=== PATIENT | male | born 1970 | race Caucasian/White ===

== ENCOUNTER 2018-11-28 14:21 | Emergency (ER) | payer MEDICAID, OTHER ==
[~2018-11-28] VITALS: Ht 198.1 cm; Wt 108.5 kg
[~2018-11-28 14:21] MED LIST: NO HOME MEDS
[2018-11-28 14:54] LABS: CLARITY,URINE CLEAR (Clear); COLOR,URINE YELLOW (Yellow); GLUCOSE, URINE NEGATIVE (Neg); KETONES,URINE NEGATIVE (Neg); LEUKOCYTE ESTERASE ,URINE NEGATIVE (Neg); NITRITES, URINE NEGATIVE (Neg); OCCULT BLOOD,URINE NEGATIVE (Neg); PROTEIN,URINE NEGATIVE (Neg); UROBILINOGEN,URINE 0.2 E.U/dL (0.2-1.0)
[2018-11-28] MEDS ORDERED: pantoprazole 40mg Tablet.DR PO ONE (14:55)
[2018-11-28] MEDS ORDERED: acetaminophen 325mg tablet PO ONE (14:55)
[2018-11-28 15:07] LABS: UA COLLECTION TYPE CLN CATCH MIDSTREAM
[2018-11-28 15:22] LABS: BASOPHILS % (AUTO) 0.4 % (0-1); EOSINOPHILS # (AUTO) 0.2 X10'3 (0-0.9); EOSINOPHILS % (AUTO) 2.1 % (0-6); HEMATOCRIT 47.6 % (42.0-52.0); HEMOGLOBIN 16.5 g/dl (14.0-17.9); LYMPHOCYTES # (AUTO) 2.2 X10'3 (1.1-4.8); LYMPHOCYTES % (AUTO) 29.5 % (21-51); MEAN CORPUSCULAR HEMOGLOBIN 31.7 PG (27.0-31.0); MEAN CORPUSCULAR HGB CONC 34.6 g/dL (33.0-36.5); MEAN CORPUSCULAR VOLUME 91.5 FL (78-98); MONOCYTES # (AUTO) 0.5 X10'3 (0-0.9); MONOCYTES % (AUTO) 6.3 % (2-12); NEUTROPHILS # (AUTO) 4.5 X10'3 (1.8-7.7); NEUTROPHILS % (AUTO) 61.7 % (42-75); PLATELET COUNT 209 X10'3 (140-440); RED CELL DISTRIBUTION WIDTH 13.5 % (11.5-14.5); WHITE BLOOD COUNT 7.4 X10'3 (4.5-11.0)
[2018-11-28 15:33] LABS: ALANINE AMINOTRANSFERASE 159 U/L (12-78); ALBUMIN/GLOBULIN RATIO 1.1 (1.1-1.5); ALKALINE PHOSPHATASE 141 IU/L (46-116); AMYLASE 67 U/L (25-115); ANION GAP 10 (8-16); ASPARTATE AMINO TRANSFERASE 56 U/L (10-37); BILIRUBIN,TOTAL 0.7 MG/DL (0.1-1.0); BLOOD UREA NITROGEN 14 MG/DL (7-18); BUN/CREATININE RATIO 15.6 (5.4-32.0); CHLORIDE 105 MMOL/L (99-107); GLUCOSE 97 MG/DL (70-104); LIPASE 342 U/L (73-393); POTASSIUM 3.7 MMOL/L (3.5-5.1); SODIUM 140 MMOL/L (135-145); TOTAL CARBON DIOXIDE 25.4 MMOL/L (24-32); TOTAL PROTEIN 7.7 G/DL (6.4-8.2); eGFR 90 ML/MIN
[2018-11-28] MEDS ORDERED: BISA-155 PO (15:40)
[2018-11-28] MEDS ORDERED: PANT20TA3 PO (15:40)
[2018-11-28] MEDS ORDERED: AMOX500C2 PO (15:40)
[2018-11-28] MEDS ORDERED: CLIN150C2 PO (15:46)
[2018-11-28 15:49] VITALS: BP 138/97
== END 2018-11-28 15:51 | disposition home or self-care (01) ==
LOC: ER 14:21
DX: J32.9 Chronic sinusitis, unspecified (principal); R10.13 Epigastric pain; K92.1 Melena; K59.00 Constipation, unspecified; Z79.899 Other long term (current) drug therapy; Z79.2 Long term (current) use of antibiotics; Z88.8 Allergy status to other drugs, medicaments and biological substances; Z88.6 Allergy status to analgesic agent
CPT/HCPCS: 36415; 80053; 81003; 82150; 83690; 85025; 85610; 99283

== ENCOUNTER 2019-05-06 21:53 | Emergency (ER) | payer MEDICAID, OTHER ==
[~2019-05-06] VITALS: Ht 198.1 cm; Wt 106.8 kg
[~2019-05-06 21:53] MED LIST changes: +BISA-155 PO; +PANT20TA3 PO
[2019-05-06 23:00] LABS: BASOPHILS # (AUTO) 0.1 X10'3 (0-0.2); EOSINOPHILS # (AUTO) 0.1 X10'3 (0-0.9); EOSINOPHILS % (AUTO) 1.8 % (0-6); HEMATOCRIT 47.4 % (42.0-52.0); HEMOGLOBIN 16.7 g/dl (14.0-17.9); LYMPHOCYTES # (AUTO) 2.6 X10'3 (1.1-4.8); LYMPHOCYTES % (AUTO) 39.8 % (21-51); MEAN CORPUSCULAR HEMOGLOBIN 32.8 PG (27.0-31.0); MEAN CORPUSCULAR HGB CONC 35.2 g/dL (33.0-36.5); MEAN CORPUSCULAR VOLUME 93.2 FL (78-98); MEAN PLATELET VOLUME 9.3 FL (7.4-10.4); MONOCYTES # (AUTO) 0.4 X10'3 (0-0.9); MONOCYTES % (AUTO) 6.1 % (2-12); NEUTROPHILS # (AUTO) 3.4 X10'3 (1.8-7.7); NEUTROPHILS % (AUTO) 51.3 % (42-75); PLATELET COUNT 201 X10'3 (140-440); RED BLOOD COUNT 5.09 X10'6 (4.70-6.10); RED CELL DISTRIBUTION WIDTH 12.9 % (11.5-14.5); WHITE BLOOD COUNT 6.7 X10'3 (4.5-11.0)
[2019-05-06 23:12] LABS: PARTIAL THROMBOPLASTIN TIME 29 SECONDS (22-32)
[2019-05-06 23:14] LABS: ALANINE AMINOTRANSFERASE 67 U/L (12-78); ALBUMIN 3.9 G/DL (3.4-5.0); ALKALINE PHOSPHATASE 94 IU/L (46-116); ANION GAP 11 (8-16); ASPARTATE AMINO TRANSFERASE 38 U/L (10-37); BILIRUBIN,TOTAL 0.3 MG/DL (0.1-1.0); BLOOD UREA NITROGEN 17 MG/DL (7-18); CALCIUM 9.3 MG/DL (8.5-10.1); CHLORIDE 107 MMOL/L (99-107); CREATININE 1.42 MG/DL (0.60-1.10); GLUCOSE 104 MG/DL (70-104); POTASSIUM 3.8 MMOL/L (3.5-5.1); SODIUM 142 MMOL/L (135-145); TOTAL CARBON DIOXIDE 24.2 MMOL/L (24-32); TOTAL PROTEIN 7.9 G/DL (6.4-8.2); eGFR 53 ML/MIN
[2019-05-07] MEDS ORDERED: normal saline 1000ML IV soln IVB ONE (00:05)
[2019-05-07] MEDS ORDERED: ketorolac trometh. 30mg/ml inj. IV ONE (00:05)
[2019-05-07] MEDS ORDERED: SUMAtriptan succ. 6 MG/0.5ml vial SQ ONE (01:35)
[2019-05-07] MEDS ORDERED: proCHLORperazine 10 MG/2 ml inj IV ONE (01:35)
[2019-05-07] MEDS ORDERED: benztropine 1mg tablet PO SCH (02:00)
[2019-05-07] MEDS ORDERED: benztropine 1mg tablet PO ONE (02:00)
[2019-05-07 02:33] VITALS: BP 141/93
== END 2019-05-07 02:35 | disposition home or self-care (01) ==
LOC: ER 21:54
DX: R51 Headache (principal); I10 Essential (primary) hypertension; M79.605 Pain in left leg; I25.2 Old myocardial infarction; E03.9 Hypothyroidism, unspecified; Z88.6 Allergy status to analgesic agent; Z79.899 Other long term (current) drug therapy
CPT/HCPCS: 36415; 71045; 80053; 84484; 85025; 85610; 85730; 93005; 93971; 96372; 96374; 96375; 99284; J0780; J1885; J7030; J3030

== ENCOUNTER 2020-03-14 10:19 | Emergency (ER) | payer MEDICAID, OTHER ==
[~2020-03-14] VITALS: Ht 198.1 cm; Wt 111.4 kg
[2020-03-14] MEDS ORDERED: aspirin 81mg tab.chew PO ONE (10:50)
[2020-03-14 11:02] LABS: BASOPHILS # (AUTO) 0.1 X10'3 (0-0.2); BASOPHILS % (AUTO) 1.1 % (0-1); EOSINOPHILS # (AUTO) 0.2 X10'3 (0-0.9); EOSINOPHILS % (AUTO) 2.7 % (0-6); HEMATOCRIT 46.2 % (42.0-52.0); HEMOGLOBIN 16.1 g/dl (14.0-17.9); LYMPHOCYTES % (AUTO) 33.9 % (21-51); MEAN CORPUSCULAR HEMOGLOBIN 32.2 PG (27.0-31.0); MEAN CORPUSCULAR HGB CONC 34.8 g/dL (33.0-36.5); MEAN CORPUSCULAR VOLUME 92.7 FL (78-98); MEAN PLATELET VOLUME 9.3 FL (7.4-10.4); MONOCYTES # (AUTO) 0.3 X10'3 (0-0.9); MONOCYTES % (AUTO) 5.5 % (2-12); NEUTROPHILS # (AUTO) 3.4 X10'3 (1.8-7.7); NEUTROPHILS % (AUTO) 56.8 % (42-75); PLATELET COUNT 167 X10'3 (140-440); RED BLOOD COUNT 4.99 X10'6 (4.70-6.10); RED CELL DISTRIBUTION WIDTH 12.8 % (11.5-14.5)
[2020-03-14 11:10] LABS: ALANINE AMINOTRANSFERASE 228 U/L (12-78); ALBUMIN 3.8 G/DL (3.4-5.0); ALKALINE PHOSPHATASE 116 IU/L (46-116); ANION GAP 9 (8-16); ASPARTATE AMINO TRANSFERASE 80 U/L (10-37); BILIRUBIN,TOTAL 0.6 MG/DL (0.1-1.0); BLOOD UREA NITROGEN 15 MG/DL (7-18); CHLORIDE 105 MMOL/L (99-107); GLUCOSE 102 MG/DL (70-104); POTASSIUM 3.8 MMOL/L (3.5-5.1); SODIUM 139 MMOL/L (135-145); TOTAL CARBON DIOXIDE 25.4 MMOL/L (24-32); TOTAL PROTEIN 7.7 G/DL (6.4-8.2); eGFR 80 ML/MIN
[2020-03-14 11:19] LABS: MAGNESIUM 2.2 MG/DL (1.5-2.4)
[2020-03-14 11:37] VITALS: BP 150/106
== END 2020-03-14 11:39 | disposition home or self-care (01) ==
LOC: ER 10:20
DX: R07.89 Other chest pain (principal); R20.0 Anesthesia of skin; R11.0 Nausea; I10 Essential (primary) hypertension; I25.2 Old myocardial infarction; E03.9 Hypothyroidism, unspecified; G89.29 Other chronic pain; F41.0 Panic disorder [episodic paroxysmal anxiety]; F17.200 Nicotine dependence, unspecified, uncomplicated; Z88.8 Allergy status to other drugs, medicaments and biological substances; Z79.899 Other long term (current) drug therapy
CPT/HCPCS: 36415; 71045; 80053; 83735; 83880; 84484; 85025; 93005; 99285

== ENCOUNTER 2020-10-19 22:17 | Emergency (ER) | payer BC, MEDICAID, OTHER ==
[~2020-10-19] VITALS: Ht 195.6 cm; Wt 118.0 kg
[~2020-10-19 22:17] MED LIST changes: +PANT20TA18 PO; -PANT20TA3 PO
[2020-10-19] MEDS ORDERED: HYDR-3686 PO (22:57)
[2020-10-19] MEDS ORDERED: PRED20TA PO (22:57)
[2020-10-19 23:24] VITALS: BP 144/86
== END 2020-10-19 23:28 | disposition home or self-care (01) ==
LOC: ER 22:17
DX: R21 Rash and other nonspecific skin eruption (principal); R07.89 Other chest pain; I10 Essential (primary) hypertension; I25.2 Old myocardial infarction; E03.9 Hypothyroidism, unspecified; G89.29 Other chronic pain; Z88.8 Allergy status to other drugs, medicaments and biological substances; Z79.899 Other long term (current) drug therapy
CPT/HCPCS: 93005; 99283

== ENCOUNTER 2021-11-03 01:52 | Emergency (ER) | payer BC ==
[~2021-11-03] VITALS: Ht 198.1 cm; Wt 115.9 kg
[2021-11-03 02:04] VITALS: BP 171/110
[2021-11-03] MEDS ORDERED: CEFD300C3 PO (02:09)
[2021-11-03] MEDS ORDERED: acetaminophen 325mg tablet PO ONE (02:10)
== END 2021-11-03 03:02 | disposition home or self-care (01) ==
LOC: ER 01:52
DX: H66.92 Otitis media, unspecified, left ear (principal); H92.02 Otalgia, left ear; I10 Essential (primary) hypertension; I25.2 Old myocardial infarction; E03.9 Hypothyroidism, unspecified; G89.29 Other chronic pain; Z88.6 Allergy status to analgesic agent; Z88.8 Allergy status to other drugs, medicaments and biological substances; Z79.2 Long term (current) use of antibiotics; Z79.899 Other long term (current) drug therapy
CPT/HCPCS: 99283

== ENCOUNTER 2022-07-08 14:21 | Emergency (ER) | payer BC ==
[~2022-07-08] VITALS: Ht 198.1 cm; Wt 109.1 kg
[~2022-07-08 14:21] MED LIST changes: +CEFD300C3 PO
[2022-07-08] MEDS ORDERED: CEPH-585 PO (14:53)
[2022-07-08] MEDS ORDERED: cephalexin 250mg capsule PO ONE (14:55)
[2022-07-08] MEDS ORDERED: cephalexin 500mg capsule PO ONE (14:55)
[2022-07-08] MEDS ORDERED: bacitracin 15gm ointment TP ONE (14:55)
[2022-07-08 15:13] VITALS: BP 174/90
== END 2022-07-08 15:17 | disposition home or self-care (01) ==
LOC: ER 14:21
DX: S61.031A Puncture wound without foreign body of right thumb without damage to nail, initial encounter (principal); I10 Essential (primary) hypertension; I25.2 Old myocardial infarction; E03.9 Hypothyroidism, unspecified; G89.29 Other chronic pain; Z88.6 Allergy status to analgesic agent; Z88.8 Allergy status to other drugs, medicaments and biological substances; Z79.2 Long term (current) use of antibiotics; Z79.899 Other long term (current) drug therapy; X58.XXXA Exposure to other specified factors, initial encounter; Y93.89 Activity, other specified; Y92.89 Other specified places as the place of occurrence of the external cause; Y99.8 Other external cause status
CPT/HCPCS: 29125; 73130; 99283

== ENCOUNTER 2023-07-11 20:09 | Emergency (ER) | payer BC, MEDICAID ==
[~2023-07-11] VITALS: Ht 198.1 cm; Wt 109.1 kg
[2023-07-11] MEDS ORDERED: LORazepam 2 mg/ml vial IV ONE (20:25)
[2023-07-11] MEDS ORDERED: famotidine/PF 10 mg/ml inj IV ONE (20:25)
[2023-07-11] MEDS ORDERED: methylPREDNISolone sod succ 125mg/2ml vial IV ONE (20:25)
[2023-07-11] MEDS ORDERED: FAMO-128 PO (21:32)
[2023-07-11] MEDS ORDERED: PRED20TA PO (21:32)
[2023-07-11 21:48] VITALS: BP 153/101; PULSE 70; RESP 16; TEMP 98.7; O2SAT 97
== END 2023-07-11 21:51 | disposition home or self-care (01) ==
LOC: ER 20:09
DX: T78.49XA Other allergy, initial encounter (principal); X58.XXXA Exposure to other specified factors, initial encounter
CPT/HCPCS: 96374; 96375; 99284; J2060; J2930; J3490

== ENCOUNTER 2023-10-18 09:09 | Inpatient (IN) | payer MEDICAID ==
[~2023-10-18] VITALS: Ht 198.1 cm; Wt 107.0 kg
[~2023-10-18 09:09] MED LIST changes: +FAMO-128 PO
[2023-10-18 09:58] LABS: BASOPHILS % (AUTO) 0.7 % (0-1); EOSINOPHILS # (AUTO) 0.2 X10'3 (0-0.9); HEMATOCRIT 44.2 % (42.0-52.0); HEMOGLOBIN 15.2 g/dl (14.0-17.9); LYMPHOCYTES # (AUTO) 2.6 X10'3 (1.1-4.8); LYMPHOCYTES % (AUTO) 37.9 % (21-51); MEAN CORPUSCULAR HGB CONC 34.5 g/dL (33.0-36.5); MEAN CORPUSCULAR VOLUME 92.8 FL (78-98); MEAN PLATELET VOLUME 9.3 FL (7.4-10.4); MONOCYTES # (AUTO) 0.4 X10'3 (0-0.9); MONOCYTES % (AUTO) 6.3 % (2-12); NEUTROPHILS # (AUTO) 3.6 X10'3 (1.8-7.7); NEUTROPHILS % (AUTO) 52.1 % (42-75); PLATELET COUNT 194 X10'3 (140-440); RED BLOOD COUNT 4.76 X10'6 (4.70-6.10); RED CELL DISTRIBUTION WIDTH 13.2 % (11.5-14.5); WHITE BLOOD COUNT 6.8 X10'3 (4.5-11.0)
[2023-10-18 10:35] LABS: ALBUMIN 3.5 G/DL (3.4-5.0); ANION GAP 11 (8-16); BLOOD UREA NITROGEN 12 MG/DL (7-18); BUN/CREATININE RATIO 13.2 (10.0-20.0); CALCIUM 9.1 MG/DL (8.5-10.1); CHLORIDE 106 MMOL/L (99-107); CREATININE 0.91 MG/DL (0.60-1.10); GLUCOSE 98 MG/DL (70-104); POTASSIUM 3.8 MMOL/L (3.5-5.1); PRO BRAIN NATRIURETIC PEPTIDE 147 PG/ML (0-125); SODIUM 143 MMOL/L (135-145); TOTAL CARBON DIOXIDE 26.1 MMOL/L (24-32); eCRCL 123 ML/MIN; eGFR 87 ML/MIN
[2023-10-18] MEDS: hydrALAZINE 20mg/ml inj. IV ONE ×2 (10:57→12:09)
[2023-10-18 13:33] LABS: URINE AMPHETAMINE SCREEN NEGATIVE (Neg); URINE BARBITUATE SCREEN NEGATIVE (Neg); URINE BENZODIAZEPINES SCREEN NEGATIVE (Neg); URINE CANNABINOID SCREEN NEGATIVE (Neg); URINE COCAINE SCREEN NEGATIVE (Neg); URINE METHADONE SCREEN NEGATIVE (Neg); URINE OPIATE SCREEN NEGATIVE (Neg); URINE PHENCYCLIDINE SCREEN NEGATIVE (Neg)
[2023-10-18] MEDS ORDERED: iohexol 350MG/ML 100ml bottle IV ONE (13:57)
[2023-10-18] MEDS ORDERED: aminophylline 250mg/10ml inj. IV PRN (14:55)
[2023-10-18] MEDS ORDERED: metoprolol tartrate 1mg/ml inj IV PRN (14:55)
[2023-10-18] MEDS ORDERED: magnesium hydroxide 30ml (MOM) UD suspension PO PRN (14:55)
[2023-10-18] MEDS ORDERED: potassium Cl 20 mEq SR tablet PO PRN ×2 (14:55)
[2023-10-18] MEDS ORDERED: magnesium 4gm in 100ml NS 100 ML IV PRN (14:55)
[2023-10-18] MEDS ORDERED: potassium Cl 40MEQ/1/2NS 520ml 520 ML IV PRN (14:55)
[2023-10-18] MEDS ORDERED: ondansetron/PF 4mg/2ml inj IV PRN (14:55)
[2023-10-18] MEDS ORDERED: magnesium 2GM in 50ml NS 50 ML IV PRN (14:55)
[2023-10-18] MEDS: PERFLUTREN PROTEIN-A MICROSPHR (Optison) 0.22 MG/ML 3ML VIAL IV ONE (14:55)
[2023-10-18] MEDS ORDERED: mag hydrox/Alum hydrox/simeth 30ml oral suspension PO PRN (14:55)
[2023-10-18] MEDS ORDERED: nitroGLYCERIN 0.4mg SUBLingual tab SL PRN (14:55)
[2023-10-18] MEDS ORDERED: hydrALAZINE 20mg/ml inj. IV PRN (15:10)
[2023-10-18] MEDS: enalaprilat dihydrate 2.5mg/2ml vial IV ONE (16:18)
[2023-10-18] MEDS: nicotine 21mg patch - 24 hr TD ONE (16:52)
[2023-10-18 17:24] VITALS: BP 150/91; PULSE 58; RESP 20; TEMP 98.2; O2SAT 97
[2023-10-18 18:00] VITALS: BP 140/93; PULSE 61; RESP 16; TEMP 97.5; O2SAT 98
[2023-10-18] MEDS: acetaminophen 325mg tablet PO PRN (18:18)
[2023-10-18 20:00] VITALS: BP_SYST 158; BP_SYST 162; BP_DIAS 102; BP_DIAS 96; PULSE 63; PULSE 67
[2023-10-18] MEDS: K and/or MAG REPLACEMENT MC SCH (20:00)
[2023-10-18] MEDS: docusate sod 100mg capsule PO SCH (21:31)
[2023-10-18] MEDS: enoxaparin 40mg/0.4ml syringe SQ SCH (21:35)
[2023-10-18 22:00] VITALS: BP 162/102; PULSE 67; RESP 22; TEMP 97.5; O2SAT 97
[2023-10-18] MEDS: normal saline 1000ml 1,000 ML IV SCH (22:14)
[2023-10-18 22:47] VITALS: RESP 16; O2SAT 98
[2023-10-18] MEDS ORDERED: LOSA100T58 PO (23:26)
[2023-10-18] MEDS ORDERED: CLON0.1T2 (23:26)
[2023-10-18] MEDS ORDERED: PARO10TA4 (23:26)
[2023-10-18] MEDS ORDERED: LEVO137T2 PO (23:26)
[2023-10-18] MEDS ORDERED: LORA-269 (23:26)
[2023-10-19] VITALS (15 sets, daily range): BP systolic 154–179; BP diastolic 88–113; PULSE 62–107; RESP 13–20; TEMP 97.5–97.7; O2SAT 93–99
[2023-10-19] MEDS: HYDROcodone/acetaminophen 5mg/325mg tablet PO ONE (06:03)
[2023-10-19 07:04] LABS: BASOPHILS % (AUTO) 0.7 % (0-1); EOSINOPHILS # (AUTO) 0.3 X10'3 (0-0.9); EOSINOPHILS % (AUTO) 3.8 % (0-6); HEMATOCRIT 43.7 % (42.0-52.0); HEMOGLOBIN 15.2 g/dl (14.0-17.9); LYMPHOCYTES # (AUTO) 2.5 X10'3 (1.1-4.8); LYMPHOCYTES % (AUTO) 35.4 % (21-51); MEAN CORPUSCULAR HGB CONC 34.8 g/dL (33.0-36.5); MEAN CORPUSCULAR VOLUME 92.1 FL (78-98); MEAN PLATELET VOLUME 9.3 FL (7.4-10.4); MONOCYTES # (AUTO) 0.4 X10'3 (0-0.9); NEUTROPHILS # (AUTO) 3.8 X10'3 (1.8-7.7); NEUTROPHILS % (AUTO) 54.1 % (42-75); PLATELET COUNT 197 X10'3 (140-440); RED BLOOD COUNT 4.75 X10'6 (4.70-6.10)
[2023-10-19 07:22] LABS: ALANINE AMINOTRANSFERASE 48 U/L (12-78); ALBUMIN 3.6 G/DL (3.4-5.0); ALKALINE PHOSPHATASE 122 IU/L (46-116); ANION GAP 10 (8-16); ASPARTATE AMINO TRANSFERASE 20 U/L (10-37); BILIRUBIN,TOTAL 0.5 MG/DL (0.1-1.0); BLOOD UREA NITROGEN 13 MG/DL (7-18); BUN/CREATININE RATIO 14.4 (10.0-20.0); CALCIUM 8.9 MG/DL (8.5-10.1); CHLORIDE 107 MMOL/L (99-107); GLUCOSE 101 MG/DL (70-104); POTASSIUM 3.7 MMOL/L (3.5-5.1); SODIUM 142 MMOL/L (135-145); TOTAL CARBON DIOXIDE 25.3 MMOL/L (24-32); TOTAL PROTEIN 7.2 G/DL (6.4-8.2); eCRCL 124 ML/MIN; eGFR 89 ML/MIN
[2023-10-19] MEDS: nicotine 21mg patch - 24 hr TD SCH (07:35)
[2023-10-19] MEDS: amLODIPine 5mg tablet PO SCH (07:36)
[2023-10-19] MEDS: atorvastatin 20mg tablet PO SCH (07:37)
[2023-10-19] MEDS: regadenoson 0.4mg/5ml syringe IV PRN (11:03)
[2023-10-19] MEDS: diazepam 5mg tablet PO ONE (13:20)
[2023-10-19] MEDS: losartan 50mg tablet PO ONE (13:35)
[2023-10-19] MEDS ORDERED: NICO-687 TD (14:16)
[2023-10-19] MEDS ORDERED: ATOR-2 PO (14:16)
[2023-10-19] MEDS ORDERED: AMLO-708 PO (14:16)
[2023-10-20] MEDS ORDERED: levoTHYROXINE 112mcg tablet PO SCH (07:00)
[2023-10-20] MEDS ORDERED: levoTHYROXINE 25mcg tablet PO SCH (07:00)
[2023-10-20] MEDS ORDERED: losartan 50mg tablet PO SCH (08:00)
== END 2023-10-19 15:10 | disposition home or self-care (01) | DRG 199 ==
LOC: ER 09:10 → ED HOLD 15:04 → PCU 3S 17:13
PROVIDERS: ADMIT Family Medicine; ATTEND Family Medicine
PROC: B32T1ZZ Computerized Tomography (CT Scan) of Left Pulmonary Artery using Low Osmolar Contrast (ICD-10-PCS; principal; 2023-10-18)
PROC: B3201ZZ Computerized Tomography (CT Scan) of Thoracic Aorta using Low Osmolar Contrast (ICD-10-PCS; 2023-10-18)
PROC: B32S1ZZ Computerized Tomography (CT Scan) of Right Pulmonary Artery using Low Osmolar Contrast (ICD-10-PCS; 2023-10-18)
PROC: 4A02XM4 Measurement of Cardiac Total Activity, External Approach (ICD-10-PCS; 2023-10-19)
PROC: 3E033HZ Introduction of Radioactive Substance into Peripheral Vein, Percutaneous Approach (ICD-10-PCS; 2023-10-19)
DX: I16.1 Hypertensive emergency (principal); E03.9 Hypothyroidism, unspecified; R55 Syncope and collapse; I10 Essential (primary) hypertension; F41.9 Anxiety disorder, unspecified; G89.29 Other chronic pain; G62.9 Polyneuropathy, unspecified; E78.00 Pure hypercholesterolemia, unspecified; F17.210 Nicotine dependence, cigarettes, uncomplicated; Z82.61 Family history of arthritis; Z88.0 Allergy status to penicillin; Z88.6 Allergy status to analgesic agent; I25.2 Old myocardial infarction; Z82.49 Family history of ischemic heart disease and other diseases of the circulatory system; Z88.8 Allergy status to other drugs, medicaments and biological substances; Z79.899 Other long term (current) drug therapy; Z71.6 Tobacco abuse counseling
CPT/HCPCS: 36415; 70450; 70496; 70498; 71045; 78452; 80048; 80053; 80305; 83880; 84484; 85025; 87081; 93005; 93017; 93306; 96374; 96375; 96376; 99291; A9500; G0378; J0360; J1650; J2785; J3490; J7030; Q9967

== ENCOUNTER → 2024-01-17 | Outpatient (CLI) | payer MEDICAID ==
[2024-01-17] VITALS (21 sets, daily range): BP systolic 117–140; BP diastolic 59–91; PULSE 53–77
[~2024-01-17] MED LIST changes: +AMLO-708 PO; +ATOR-2 PO; -CEFD300C3 PO; +CLON0.1T2; +LEVO137T2 PO; +LORA-269; +LOSA100T58 PO; +NICO-687 TD; -NO HOME MEDS; +PARO10TA4
== END | disposition home or self-care (01) ==
LOC: CARD DIAG 05:28
PROVIDERS: ATTEND Internal Medicine Interventional Cardiology
DX: I95.1 Orthostatic hypotension (principal)
CPT/HCPCS: 93660

== ENCOUNTER 2024-09-06 19:55 | Emergency (ER) | payer MEDICAID ==
[~2024-09-06] VITALS: Ht 195.6 cm; Wt 84.9 kg
[2024-09-06] MEDS ORDERED: albuterol 2.5 MG/3 ML nebule NEB ONE (20:10)
[2024-09-06] MEDS: epiNEPHrine 1 mg/ml inj SQ ONE (20:16)
[2024-09-06] MEDS: famotidine/PF 10 mg/ml inj IV ONE (20:17)
[2024-09-06] MEDS: methylPREDNISolone sod succ 125mg/2ml vial IV ONE (20:17)
[2024-09-06] MEDS: normal saline 1000ML IV soln IVB STA (20:18)
[2024-09-06] MEDS: epiNEPHrine 1 mg/ml inj SQ STA (20:39)
[2024-09-06 22:00] VITALS: TEMP 96.8
[2024-09-06] MEDS ORDERED: EPIN0.3P3 IM (22:00)
[2024-09-06 22:02] VITALS: BP 139/87; PULSE 85; RESP 14; O2SAT 98
== END 2024-09-06 22:07 | disposition home or self-care (01) ==
LOC: ER 19:55
DX: T78.40XA Allergy, unspecified, initial encounter (principal); E03.9 Hypothyroidism, unspecified; I10 Essential (primary) hypertension; F12.90 Cannabis use, unspecified, uncomplicated; Z88.6 Allergy status to analgesic agent; Y92.89 Other specified places as the place of occurrence of the external cause
CPT/HCPCS: 93005; 96361; 96372; 96374; 96375; 99284; J0171; J2919; J3490; J7030

== ENCOUNTER 2025-02-05 09:56 | Emergency (ER) | payer MEDICAID ==
[~2025-02-05] VITALS: Ht 198.1 cm; Wt 84.3 kg
[~2025-02-05 09:56] MED LIST changes: +EPIN0.3P3 IM
--- NOTE | 2025-02-05 10:05 | Physician Documentation ---
History of Present Illness ~ Stated Complaint: CP HIGH BLOOD PRESSURE Time Seen by MD: 10:23 Primary Medical Doctor: none HPI This is a 54-year-old male who presents due to onset of left-sided chest pain this morning. He does also note a history of panic disorder, and has been experiencing numbness and tingling in the extremities as he was at home sitting checking his blood pressure. Notes BP 190's systolic at home. He does note a history of a heart attack couple of [place] ago in [place]. 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 Smokes. Additional note by Beny Abbott DO: I took over the care of this patient from previous physician. I reviewed any previous notes available, obtain my own history, review of systems and physical examination was performed by myself. This is a very pleasant gentleman, 54 years of age, who self reports a prior history of cardiac workup approximately six months ago with a stress test and an echo, history of panic attack, history of UT three years ago while in [place]. He comes in today because he developed bilateral hand and feet numbness, and feeling off. He checked his blood pressure and it was elevated. He did multiple readings of repeated elevated blood pressure. At the point he decided to come and get checked out. While EN route to the emergency department he had developed left-sided chest pain. The particular palliating or aggravating factors. Did not attempt to treat it. A they numbness in bilateral hands and feet is symmetric. Does have known history of hypertension, on multiple medications. Medication Reconciliation Allergies: Coded Allergies: diphenhydramine HCl (Verified Allergy, Intermediate, HIVES, 02/05/25) naproxen (Verified Allergy, Intermediate, BLISTERS, 02/05/25) Uncoded Allergies: PENICILLIN (Allergy, Mild, 05/06/19) Scheduled Amlodipine Besylate (Amlodipine Besylate), 1 TAB PO DAILY Atorvastatin Calcium (Atorvastatin Calcium), 1 TAB PO DAILY Bisacodyl (Dulcolax), 4 TAB PO ONCE Epinephrine (Epipen 2-Josef), 1 SYR IM ONCE Famotidine (Pepcid), 1 TAB PO Q12H Levothyroxine Sodium (Levothyroxine Sodium), 1 TAB PO DAILY, (Reported) Losartan Potassium (Losartan Potassium), 1 TAB PO DAILY, (Reported) Nicotine 21 MG Patch* (Habitrol 21 MG Patch*), 1 PATCH TD DAILY Pantoprazole Sodium (Protonix), 1 TAB PO DAILY Miscellaneous Medications Clonidine HCl (Clonidine HCl), (Reported) Lorazepam (Ativan), (Reported) Paroxetine Hcl (PAXIL tablet), 20, (Reported) Past Medical History Past Medical History: Hypertension, Myocardial Infarction, Hypothyroidism, Chronic Back Pain, Panic Disorder Past Surgical History: noncontributory Patient History: FH: hypertension MOTHER FH: myocardial infarction brother FH: rheumatoid arthritis MOTHER Alcohol Use: None Drug Use: marijuana Lives with: Spouse Lives In: Home Review of Systems ROS As stated above in the HPI, otherwise all systems are reviewed and negative. Physical Exam Physical Exam Physical examination: GENERAL: Awake, alert, oriented, GCS 15, no apparent distress, non-toxic appearing, answers questions, follows commands appropriately. HEENT: Atraumatic, normocephalic, pupils equal, extraocular muscles intact Active gross movements, sclerae anicteric, mucus membranes moist, no stridor. NECK: Midline, no JVD CARDIOVASCULAR: Good skin perfusion without evidence of pallor, mottling. PULMONARY: Nonlabored, symmetric chest rise, no audible wheezing, no accessory muscle use, no respiratory distress, speaking in full sentences. GASTROINTESTINAL: Not distended. NEUROLOGIC: Lucid with normal mental status. Normal facial symmetry. Moves all extremities symmetrically and with purpose. No truncal ataxia. Speech is fluid without evidence of dysarthria or aphasia, no focal deficits appreciated. EXTREMITIES: Acute deformities Skin: warm, dry PSYCHIATRIC: Normal affect, normal insight, normal concentration. Focused exam: [] Progress Results/Orders Results/Orders Vital Signs 02/05/25 02/05/25 02/05/25 10:01 10:28 11:21 Temp 98.5 Pulse 66 58 Resp 18 16 B/P (MAP) 163/113 165/110 (128) Pulse Ox 100 98 O2 Flow Rate 0 Laboratory Tests Test 02/05/25 10:01 02/05/25 11:53 White Blood Count 8.3 Red Blood Count 4.90 Hemoglobin 15.6 Hematocrit 45.0 Mean Corpuscular Volume 91.8 Mean Corpuscular Hemoglobin 31.9 H Mean Corpuscular Hemoglobin Concent 34.7 Red Cell Distribution Width 13.6 Platelet Count 235 Mean Platelet Volume 9.0 Neutrophils (%) (Auto) 56.0 Lymphocytes (%) (Auto) 36.4 Monocytes (%) (Auto) 5.3 Eosinophils (%) (Auto) 1.5 Basophils (%) (Auto) 0.8 Neutrophils # (Auto) 4.6 Lymphocytes # (Auto) 3.0 Monocytes # (Auto) 0.4 Eosinophils # (Auto) 0.1 Basophils # (Auto) 0.1 CBC Comment Sodium Level 140 Potassium Level 3.6 Chloride Level 103 Carbon Dioxide Level 28.2 Anion Gap 9 Blood Urea Nitrogen 12 Creatinine 0.95 Estimated GFR/1.73 m2 83 BUN/Creatinine Ratio 12.6 Glucose Level 95 Calcium Level 9.2 Magnesium Level 2.3 Total Bilirubin 0.6 Aspartate Amino Transf (AST/SGOT) 31 Alanine Aminotransferase (ALT/SGPT) 49 Alkaline Phosphatase 118 H Troponin I High Sensitivity 8 8 Pro-B-Type Natriuretic Peptide 202 H Total Protein 7.8 Albumin 4.0 Globulin 3.8 Albumin/Globulin Ratio 1.1 Chemistry Comments Troponin I High Sens Percent Delta 0 Troponin I Hi Sens Absolute Change 0 Medical Decision Making Findings Facility Status: ED Holds, [facility] process The plan was discussed with the patient, who demonstrates clear understanding of the plan and is in agreement with the plan unless otherwise noted in the chart. All questions have been answered, all concerns were addressed unless otherwise documented. I was available throughout their ED stay for frequent reassessment and questions. Differential Diagnoses (considered and possible or likely): [Initial trigger for the visit was feeling off and has been bilateral has been feet numbness with the differential including but not limited to hyperventilation, panic, clinically not consistent with CVA/TIA, and unlikely to have Guillain-Nashua syndrome as he has not no risk factors. And intracranial neoplasm is unlikely to calm abdominal has been feet numbness. Elevated blood pressure most likely related to with a state of increased alertness. With respect to chest pain, Differential diagnosis considered includes chest wall pain, pleurisy, pneumonia, pulmonary embolus, GERD, esophagitis, gastritis, anxiety, stress reaction, costochondritis, acute coronary syndrome, aortic dissection, pericarditis, myocarditis, or pneumothorax.] ??Differential Diagnoses (considered and unlikely, not requiring evaluation currently): [No evidence of lateralizing signs to suspect a stroke at this time. No trauma.] MDM Data Please see HPI for the following: Independent Historians and external Records Review. Historian: [Patient] Independent Historians: ?[, record review] Medication Management: [Reviewed medication list] Social History and determinants: [Reviewed] Please see the body of the note for the following: Any independent interpretations of ECG, imaging studies. All vitals signs/haemodynamics, ordered tests were independently reviewed and interpreted by myself. 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 The gentleman does have elevated blood pressure but is holding stable. There is no evidence of tachycardic, there were no evidence of respiratory distress. Laboratory studies reviewed. CBC shows no leukocytosis, no anemia, normal platelets. No neutrophilic predominance. Metabolic panel notes no electrolyte derangement, normal wrong liver function. Marginal appropriate pain, 2- troponins.] Tests considered but not ordered include: [MRI can be done on an outpatient basis, he had a recent stress test] Social Determinants of Health Impact: Patient was evaluated in [facility], or [facility] [place] access to healthcare due to below par ratio of patient to medical providers. [] Comorbid Conditions Impacting Present Evaluation and Care/Treatment: [Prior history of UT] Management Discussions with other Healthcare Providers: [None] Treatment and Disposition Medication Management (Given or considered): []. See EMR for details Consideration for Hospitalization/Escalation/Deescalation of Care: Admission for observation has been considered, [however the patient is able to tolerate p.o., their symptoms are controlled, they are able to rely on oral medications, and their chief complaint/diagnosis can be managed on outpatient basis.] ?ED Course:?[No clinical deterioration. No significant spikes in blood pre ssure.] ?Shared decision making:?[Patient is hemodynamically stable for discharge home with follow with their primary care provider. [ ] Specific and cautious return precautions provided and discussed with full understanding. Any incidental findings were also discussed and follow up recommendations given. [] All questions answered. Patient/family were able to verbalize back return precautions. Patient/family agree to plan. Copies of imaging and laboratory studies were provided.] Code status:?FULL Please see the full Electronic Medical Record for full details of nursing documentation, medications list, other records of complete past medical history and conditions, vital signs, laboratory studies, and any radiologic study interpretations by radiologists. Portions of this note were completed using [employer] dictation software and as a result there may exist minor errors in spelling. I have reviewed elements of past family and social history and agree as included in note. Departure Disposition: HOME / SELF CARE / HOMELESS Impression: Primary Impression: Numbness and tingling of both feet Additional Impressions: Numbness and tingling in both hands Elevated blood pressure reading with diagnosis of hypertension Chest pain Discharge Instructions: Hypertension, Adult, Nonspecific Chest Pain, Adult Referrals: NO PRIMARY CARE PROVIDER (PCP) Education Educated: Patient, Family Educated regarding: diagnosis, treatment, prognosis, need for follow up (Ordered for the this is) Signature Scribe Signature: No scribe Attestation: The note accurately reflects work and decisions made by me.Natalie Hamilton NP 02/05/25 10:05 This note accurately reflects clinical decisions, work performed by myself, DO AREN Ventura HEIDI L NP Feb 05, 2025 10:05 BENY ABBOTT DO Feb 05, 2025 13:11
--- NOTE | 2025-02-05 10:07 | ELECTROCARDIOGRAPH REPORT ---
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
[2025-02-05 10:21] LABS: MEAN PLATELET VOLUME 9.0 FL (7.4-10.4); RED CELL DISTRIBUTION WIDTH 13.6 % (11.5-14.5)
--- NOTE | 2025-02-05 10:30 | RADIOLOGY REPORT ---
EXAM: DI CHEST,SINGLE VIEW HISTORY: CHEST PAIN COMPARISON: DI CHEST,SINGLE VIEW on DOS: 10/18/23, CHEST,SINGLE VIEW on DOS: 03/14/20, CHEST,SINGLE VIE W on DOS: 05/06/19 TECHNIQUE: Portable upright AP view of the chest was performed. FINDINGS: No pneumothorax, consolidative infiltrates, or pulmonary edema. There is mild to moderate central per ibronchial thickening. The heart is not enlarged. There may be postoperative changes of the left shou lder, not fully imaged here. IMPRESSION: Reactive airways disease. The lungs are otherwise clear.
[2025-02-05 10:46] LABS: CREATININE 0.95 MG/DL (0.60-1.10); TOTAL CARBON DIOXIDE 28.2 MMOL/L (24-32); eCRCL 107 ML/MIN; eGFR 83 ML/MIN
[2025-02-05 10:49] LABS: PRO BRAIN NATRIURETIC PEPTIDE 202 PG/ML (0-125)
[2025-02-05 13:32] VITALS: BP 153/109; PULSE 53; RESP 16; TEMP 98; O2SAT 98
== END 2025-02-05 13:33 | disposition home or self-care (01) ==
LOC: ER 09:57
DX: R07.89 Other chest pain (principal); R20.0 Anesthesia of skin; I10 Essential (primary) hypertension; I25.2 Old myocardial infarction; F17.200 Nicotine dependence, unspecified, uncomplicated; F12.90 Cannabis use, unspecified, uncomplicated; E03.9 Hypothyroidism, unspecified; Z88.6 Allergy status to analgesic agent; Z88.8 Allergy status to other drugs, medicaments and biological substances; Z79.899 Other long term (current) drug therapy
CPT/HCPCS: 36415; 71045; 80053; 83735; 83880; 84484; 85025; 93005; 99285